=== PATIENT | female | born 1995 | race Caucasian/White ===

== ENCOUNTER 2020-06-14 10:42 | Emergency (ER) | payer OTHER ==
[2020-06-14] MEDS ORDERED: SODIUM CHLORIDE 0.9% 1,000 ML IV ONE (10:55)
--- NOTE | 2020-06-14 10:58 | ED ---
General Adult HPI - General Stated complaint: Seizure, Mental Health Time Seen by Provider: 06/14/20 10:42 Source: patient, RN notes reviewed, old records reviewed - History of Present Illness Initial comments: This is a 25-year-old female who presents emergency department after EMS had brought her in. 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 Patient herself does not remember any of the episode she does not remember EMS arriving she does not know where she currently is except that she know she is in the hospital. Patient states she did have a seizure about a month ago for the first time. Patient states she was up late last night drinking. Patient denies any drug use except marijuana. Patient states she has a very mild headache she denies any chest pain palpitations difficulty breathing or shortness of breath. Patient denies any recent fever chills per patient denies any abdominal pain patient denies nausea vomiting diarrhea. - Related Data Allergies Allergy/AdvReac Type Severity Reaction Status Date / Time No Known Allergies Allergy Verified 06/14/20 11:12 Review of Systems ROS Statement: Those systems with pertinent positive or pertinent negative responses have been documented in the HPI. ROS Other: All systems not noted in ROS Statement are negative. General Exam - General Exam Comments Initial Comments: GENERAL: Patient is well-developed and well-nourished. Patient is nontoxic and well- hydrated and is in mild distress. Patient is what secondary to being diaphoretic earlier. ENT: Neck is soft and supple. No significant lymphadenopathy is noted. Oropharynx is clear. Moist mucous membranes. Neck has full range of motion without eliciting any pain. EYES: The sclera were anicteric and conjunctiva were pink and moist. Extraocular movements were intact and pupils were equal round and reactive to light. Eyelids were unremarkable. PULMONARY: Unlabored respirations. Good breath sounds bilaterally. No audible rales rhonchi or wheezing was noted. CARDIOVASCULAR: There is a regular rate and rhythm without any murmurs gallops or rubs. ABDOMEN: Soft and nontender with normal bowel sounds. SKIN: Skin is clear with no lesions or rashes and otherwise unremarkable. NEUROLOGIC: Patient is alert and oriented 2. Cranial nerves II through XII are grossly intact. Motor and sensory are also intact. Normal speech, volume and content. Symmetrical smile. MUSCULOSKELETAL: Normal extremities with adequate strength and full range of motion. LYMPHATICS: No significant lymphadenopathy is noted PSYCHIATRIC: Unable to assess at this time Course Vital Signs 06/14/20 06/14/20 06/14/20 10:52 11:45 12:01 Temperature 97.1 F L 96.8 F L Pulse Rate 117 H 100 90 Respiratory 18 18 18 Rate Blood Pressure 110/69 113/77 O2 Sat by Pulse 97 98 100 Oximetry Medical Decision Making - Medical Decision Making EKG shows sinus rhythm at 86 bpm AK interval 236 QRS 88 QT interval 348 QTC is 416. Patient's EKG shows no ST segment elevation or depression. I will begin to reevaluate the patient she was much more alert and she stated that last time she had a seizure a month ago approximately she had a very violent postictal CT of the brain shows hydrocephalus. Patient had amphetamines on board which she admitted to using on occasion. I recommended that the patient stay because this is her second seizure in the last 4-5 weeks and it because of the abnormal hydrocephalus but the patient refused and signed out AMA understanding of the possible morbidity mortality - Lab Data Result diagrams: 06/14/20 11:15 06/14/20 11:15 Lab Results 06/14/20 06/14/20 06/14/20 Range/Units 11:15 11:15 11:15 WBC 9.2 (3.8-10.6) k/uL RBC 4.82 (3.80-5.40) m/uL Hgb 15.8 (11.4-16.0) gm/dL Hct 48.2 H (34.0-46.0) % MCV 100.0 (80.0-100.0) fL MCH 32.8 (25.0-35.0) pg MCHC 32.8 (31.0-37.0) g/dL RDW 12.2 (11.5-15.5) % Plt Count 246 (150-450) k/uL Neutrophils % 71 % Lymphocytes % 14 % Monocytes % 10 % Eosinophils % 2 % Basophils % 0 % Neutrophils # 6.6 (1.3-7.7) k/uL Lymphocytes # 1.3 (1.0-4.8) k/uL Monocytes # 0.9 (0-1.0) k/uL Eosinophils # 0.2 (0-0.7) k/uL Basophils # 0.0 (0-0.2) k/uL PT 10.5 (9.0-12.0) sec INR 1.0 (<1.2) APTT 20.6 L (22.0-30.0) sec Sodium (137-145) mmol/L Potassium (3.5-5.1) mmol/L Chloride (98-107) mmol/L Carbon Dioxide (22-30) mmol/L Anion Gap mmol/L BUN (7-17) mg/dL Creatinine (0.52-1.04) mg/dL Est GFR (CKD-EPI)AfAm (>60 ml/min/1.73 sqM) Est GFR (CKD-EPI)NonAf (>60 ml/min/1.73 sqM) Glucose (74-99) mg/dL Calcium (8.4-10.2) mg/dL Total Bilirubin (0.2-1.3) mg/dL AST (14-36) U/L ALT (4-34) U/L Alkaline Phosphatase (38-126) U/L Troponin I (0.000-0.034) ng/mL Total Protein (6.3-8.2) g/dL Albumin (3.5-5.0) g/dL Urine Color Yellow Urine Appearance Clear (Clear) Urine pH 5.5 (5.0-8.0) Ur Specific [place] 1.016 (1.001-1.035) Urine Protein 1+ H (Negative) Urine Glucose (UA) Negative (Negative) Urine Ketones 1+ H (Negative) Urine Blood Negative (Negative) Urine Nitrite Negative (Negative) Urine Bilirubin Negative (Negative) Urine Urobilinogen <2.0 (<2.0) mg/dL Ur Leukocyte Esterase Small H (Negative) Urine RBC 2 (0-5) /hpf Urine WBC 7 H (0-5) /hpf Ur Squamous Epith Cells 6 H (0-4) /hpf Hyaline Casts 12 H (0-2) /lpf Granular Casts 1 (0) /lpf Urine Mucus Rare H (None) /hpf Urine Opiates Screen Not Detected (NotDetected) Ur Oxycodone Screen Not Detected (NotDetected) Urine Methadone Screen Not Detected (NotDetected) Ur Propoxyphene Screen Not Detected (NotDetected) Ur Barbiturates Screen Not Detected (NotDetected) U Tricyclic Antidepress Not Detected (NotDetected) Ur Phencyclidine Scrn Not Detected (NotDetected) Ur Amphetamines Screen Detected H (NotDetected) U Methamphetamines Scrn Not Detected (NotDetected) U Benzodiazepines Scrn Not Detected (NotDetected) Urine Cocaine Screen Not Detected (NotDetected) U Marijuana (THC) Screen Detected H (NotDetected) Serum Alcohol mg/dL 06/14/20 06/14/20 Range/Units 11:15 11:15 WBC (3.8-10.6) k/uL RBC (3.80-5.40) m/uL Hgb (11.4-16.0) gm/dL Hct (34.0-46.0) % MCV (80.0-100.0) fL MCH (25.0-35.0) pg MCHC (31.0-37.0) g/dL RDW (11.5-15.5) % Plt Count (150-450) k/uL Neutrophils % % Lymphocytes % % Monocytes % % Eosinophils % % Basophils % % Neutrophils # (1.3-7.7) k/uL Lymphocytes # (1.0-4.8) k/uL Monocytes # (0-1.0) k/uL Eosinophils # (0-0.7) k/uL Basophils # (0-0.2) k/uL PT (9.0-12.0) sec INR (<1.2) APTT (22.0-30.0) sec Sodium 138 (137-145) mmol/L Potassium 4.0 (3.5-5.1) mmol/L Chloride 108 H (98-107) mmol/L Carbon Dioxide 20 L (22-30) mmol/L Anion Gap 10 mmol/L BUN 12 (7-17) mg/dL Creatinine 0.86 (0.52-1.04) mg/dL Est GFR (CKD-EPI)AfAm >90 (>60 ml/min/1.73 sqM) Est GFR (CKD-EPI)NonAf >90 (>60 ml/min/1.73 sqM) Glucose 86 (74-99) mg/dL Calcium 9.1 (8.4-10.2) mg/dL Total Bilirubin 0.5 (0.2-1.3) mg/dL AST 29 (14-36) U/L ALT 17 (4-34) U/L Alkaline Phosphatase 66 (38-126) U/L Troponin I <0.012 (0.000-0.034) ng/mL Total Protein 7.1 (6.3-8.2) g/dL Albumin 4.5 (3.5-5.0) g/dL Urine Color Urine Appearance (Clear) Urine pH (5.0-8.0) Ur Specific [place] (1.001-1.035) Urine Protein (Negative) Urine Glucose (UA) (Negative) Urine Ketones (Negative) Urine Blood (Negative) Urine Nitrite (Negative) Urine Bilirubin (Negative) Urine Urobilinogen (<2.0) mg/dL Ur Leukocyte Esterase (Negative) Urine RBC (0-5) /hpf Urine WBC (0-5) /hpf Ur Squamous Epith Cells (0-4) /hpf Hyaline Casts (0-2) /lpf Granular Casts (0) /lpf Urine Mucus (None) /hpf Urine Opiates Screen (NotDetected) Ur Oxycodone Screen (NotDetected) Urine Methadone Screen (NotDetected) Ur Propoxyphene Screen (NotDetected) Ur Barbiturates Screen (NotDetected) U Tricyclic Antidepress (NotDetected) Ur Phencyclidine Scrn (NotDetected) Ur Amphetamines Screen (NotDetected) U Methamphetamines Scrn (NotDetected) U Benzodiazepines Scrn (NotDetected) Urine Cocaine Screen (NotDetected) U Marijuana (THC) Screen (NotDetected) Serum Alcohol <10 mg/dL Disposition Clinical Impression: Generalized seizure, Hydrocephalus, Amphetamine abuse Disposition: Left Against Medical Advice Instructions (If sedation given, give patient instructions): New-Onset Seizure in Adults (ED) Is patient prescribed a controlled substance at d/c from ED?: No Referrals: Nonstaff,Physician [Primary Care Provider] - 1-2 days Time of Disposition: 12:53
[2020-06-14 11:00] VITALS: RESP 18
[2020-06-14 11:43] LABS: ALT 17 U/L (4-34); AST 29 U/L (14-36); African American GFR (CKD) >90 (>60 ml/min/1.73 sqM); Albumin 4.5 g/dL (3.5-5.0); Alcohol <10 mg/dL; Alkaline Phosphatase 66 U/L (38-126); Anion Gap 10 mmol/L; Blood Urea Nitrogen 12 mg/dL (7-17); Calcium 9.1 mg/dL (8.4-10.2); Carbon Dioxide 20 mmol/L (22-30); Chloride 108 mmol/L (98-107); Glucose 86 mg/dL (74-99); Non-African American GFR(CKD) >90 (>60 ml/min/1.73 sqM); Prothrombin Time 10.5 sec (9.0-12.0); Sodium 138 mmol/L (137-145); Total Bilirubin 0.5 mg/dL (0.2-1.3); Total Protein 7.1 g/dL (6.3-8.2)
[2020-06-14 11:45] LABS: Partial Thromboplastin Time 20.6 sec (22.0-30.0)
--- NOTE | 2020-06-14 11:46 | CT ---
EXAMINATION TYPE: CT brain wo con DATE OF EXAM: 06/14/2020 COMPARISON: None HISTORY: 25 year-old female altered mental status, confusion TECHNIQUE: Examination was done in axial plane without intravenous contrast. Coronal and sagittal r econstructions performed. CT DLP: 1054.4 mGycm Automated exposure control for dose reduction was used. FINDINGS: There is no evidence of acute intracranial hemorrhage, acute ischemic changes, mass, mass-effect, or extra-axial fluid collection. There is no effacement of cerebral sulci or basal subarachnoid cister ns. There is mild to moderate hydrocephalus with Lorne's ratio calculated at 0.38. There is no midline shift. Sheth-white matter distinction is preserved. Small amount of opacification within the inferior most right mastoid air cells. Paranasal sinuses are clear. Orbits and globes are intact. IMPRESSION: Mild/moderate hydrocephalus, abnormal for this patient, but of unknown chronicity. Correlate for any known underlying diagnosis. NPH is generally described in the older population. Consider sequela of p rior intracranial infection. Correlation can be made to exclude any active infection. No acute intrac ranial hemorrhage, midline shift, or obstructing lesion is seen.
[2020-06-14] MEDS ORDERED: ONDANSETRON 4 MG/2 ML VIAL IVP STA (11:47)
--- NOTE | 2020-06-14 11:56 | XR ---
EXAMINATION TYPE: XR chest 2V DATE OF EXAM: 06/14/2020 COMPARISON: None HISTORY: 25-year-old female seizure-like activity, altered mental status. TECHNIQUE: AP and lateral views FINDINGS: The cardiomediastinal silhouette, aorta, and pulmonary vasculature are within normal limits. Lungs an d pleural spaces are clear. IMPRESSION: No acute cardiopulmonary process.
[2020-06-14 12:00] LABS: Basophils % (A) 0 %; Eosinophils # (A) 0.2 k/uL (0-0.7); Eosinophils % (A) 2 %; HCT 48.2 % (34.0-46.0); HGB 15.8 gm/dL (11.4-16.0); Lymphocytes # (A) 1.3 k/uL (1.0-4.8); Lymphocytes % (A) 14 %; MCH 32.8 pg (25.0-35.0); MCHC 32.8 g/dL (31.0-37.0); Mean Platelet Volume 7.4; Monocytes # (A) 0.9 k/uL (0-1.0); Monocytes % (A) 10 %; Neutrophils # (A) 6.6 k/uL (1.3-7.7); Neutrophils % (A) 71 %; Platelet Count 246 k/uL (150-450); RBC 4.82 m/uL (3.80-5.40); RDW 12.2 % (11.5-15.5); WBC 9.2 k/uL (3.8-10.6)
[2020-06-14 12:02] VITALS: BP 113/77; PULSE 90; TEMP 96.8
[2020-06-14 12:23] LABS: Appearance,Urine Clear (Clear); Bilirubin,Urine Negative (Negative); Blood,Urine Negative (Negative); Color,Urine Yellow; Glucose,Urine (UA) Negative (Negative); Granular Casts,Urine 1 /lpf (0); Hyaline Casts,Urine 12 /lpf (0-2); Ketones,Urine 1+ (Negative); Leukocyte Esterase,Urine Small (Negative); Mucus,Urine Rare /hpf; Nitrite,Urine Negative (Negative); PH, Urine 5.5 (5.0-8.0); Protein,Urine 1+ (Negative); RBC,Urine 2 /hpf (0-5); Specific Gravity,Urine 1.016 (1.001-1.035); Squamous Epithelial Cell,Urine 6 /hpf (0-4); Urobilinogen,Urine <2.0 mg/dL (<2.0); WBC,Urine 7 /hpf (0-5)
[2020-06-14 12:24] LABS: Amphetamine Screen,Urine Detected (NotDetected); Barbiturate Screen,Urine Not Detected (NotDetected); Benzodiazepines Screen,Urine Not Detected (NotDetected); Cocaine Screen,Urine Not Detected (NotDetected); Methadone Screen, Urine Not Detected (NotDetected); Opiate Screen,Urine Not Detected (NotDetected); Oxycodone Screen, Urine Not Detected (NotDetected); Phencyclidine Screen,Urine Not Detected (NotDetected); Tricyclic Antidepressant,Urine Not Detected (NotDetected); Urn Cannabinoid Scrn Detected (NotDetected)
== END 2020-06-14 13:09 | disposition left against medical advice (07) ==
LOC: EC 10:42
DX: G40.909 Epilepsy, unspecified, not intractable, without status epilepticus (principal); F17.200 Nicotine dependence, unspecified, uncomplicated; G91.9 Hydrocephalus, unspecified; F15.10 Other stimulant abuse, uncomplicated
CPT/HCPCS: 36415; 93005; 80053; 84484; 85025; 85610; 85730; 81001; 80306; 80320; 71046; 70450; 99285; 96374; 96361; J2405

== ENCOUNTER 2020-07-03 14:21 | Emergency (ER) | payer OTHER ==
[2020-07-03] MEDS ORDERED: SODIUM CHLORIDE 0.9% 1,000 ML IV STA (14:48)
[2020-07-03] MEDS ORDERED: LORazepam 2 MG/ML INJ IV STA (14:48)
--- NOTE | 2020-07-03 14:48 | ED ---
General Adult HPI - General Chief complaint: Recheck/Abnormal Lab/Rx Stated complaint: seizures Time Seen by Provider: 07/03/20 14:36 Source: patient, EMS, RN notes reviewed, old records reviewed Mode of arrival: EMS Limitations: no limitations - History of Present Illness Initial comments: Patient is a pleasant 25-year-old female presenting to the emergency Department with concern she may develop a seizure. Onset of symptoms was a couple of hours ago. Patient has pressure in her head diffusely. Pressure has been waxing and waning between mild to moderate and is mild at this time. No sudden onset severe headache. Patient does feel a little bit lightheaded. Patient feels jittery as well. Patient omits to taking Adderall 10 mg as well as smoking marijuana. Patient states that lateral was not prescribed for her. Patient states she has had both of these previously without the same affect. Patient denies any confusion or weakness. Patient does have history of seizures starting just a couple of months ago. No seizure today. Patient did not have similar symptoms previously with seizure. Patient does have an appointment set up to see neurology. - Related Data Home Medications Medication Instructions Recorded Confirmed No Known Home Medications 06/14/20 07/03/20 Allergies Allergy/AdvReac Type Severity Reaction Status Date / Time No Known Allergies Allergy Verified 07/03/20 16:00 Review of Systems ROS Statement: Those systems with pertinent positive or pertinent negative responses have been documented in the HPI. ROS Other: All systems not noted in ROS Statement are negative. Constitutional: Denies: fever Eyes: Denies: eye pain ENT: Denies: ear pain Respiratory: Denies: cough Cardiovascular: Denies: chest pain Endocrine: Denies: fatigue Gastrointestinal: Denies: abdominal pain Genitourinary: Denies: urgency Musculoskeletal: Denies: back pain Skin: Denies: rash Neurological: Reports: as per HPI. Denies: weakness, confusion Past Medical History Past Medical History: Seizure Disorder History of Any Multi-Drug Resistant Organisms: None Reported Past Surgical History: No Surgical Hx Reported Past Psychological History: No Psychological Hx Reported Smoking Status: Current every day smoker Past Alcohol Use History: Occasional Past Drug Use History: Marijuana General Exam Limitations: no limitations General appearance: alert, in no apparent distress Head exam: Present: normocephalic Eye exam: Present: normal appearance, PERRL, EOMI ENT exam: Present: normal oropharynx Neck exam: Present: normal inspection. Absent: tenderness, meningismus Respiratory exam: Present: normal lung sounds bilaterally Cardiovascular Exam: Present: regular rate, normal rhythm GI/Abdominal exam: Present: soft. Absent: tenderness Extremities exam: Present: normal inspection Neurological exam: Present: alert, oriented X3, CN II-XII intact. Absent: motor sensory deficit Expanded Neurological exam: Present: protecting the airway Speech: Present: fluid speech Cranial nerves: EOM's Intact: Normal, Facial Sensation: Normal Sensory exam: Upper Extremity Light Touch: Normal, Lower Extremity Light Touch: Normal Motor strength exam: RUE: 5, LUE: 5, RLE: 5, LLE: 5 Eye Response: (4) open spontaneously Motor Response: (6) obeys commands Verbal Response: (5) oriented Psychiatric exam: Present: normal affect, normal mood Skin exam: Present: normal color Course Vital Signs 07/03/20 14:28 Temperature 97.9 F Pulse Rate 82 Respiratory 17 Rate Blood Pressure 126/85 O2 Sat by Pulse 100 Oximetry - Reevaluation(s) Reevaluation #1: 07/03/20 14:46 Patient advised risks of taking Adderall and marijuana and possible relationship to her symptoms. Patient is also advised that she should not be taking medications that are not prescribed to her. EKG Findings - EKG Comments: EKG Findings:: Normal sinus rhythm 72. VA 124. QRS 76. QT 382. QTC 418. Normal axis. Normal QRS. No acute ST change. Medical Decision Making - Medical Decision Making Patient reevaluated and is feeling much better. Patient along her feels shaky. Patient states she feels normal at this time. Patient is comfortable with discharge. Patient states she does have a regular doctor she can follow-up with. Patient states she also does have an appointment coming up with a neurologist. - Lab Data Result diagrams: 07/03/20 15:03 07/03/20 15:03 Lab Results 07/03/20 07/03/20 07/03/20 Range/Units 15:03 15: 15:03 WBC 6.8 (3.8-10.6) k/uL RBC 4.72 (3.80-5.40) m/uL Hgb 16.1 H (11.4-16.0) gm/dL Hct 47.4 H (34.0-46.0) % MCV 100.4 H (80.0-100.0) fL MCH 34.0 (25.0-35.0) pg MCHC 33.9 (31.0-37.0) g/dL RDW 12.1 (11.5-15.5) % Plt Count 246 (150-450) k/uL Neutrophils % 65 % Lymphocytes % 18 % Monocytes % 11 % Eosinophils % 1 % Basophils % 1 % Neutrophils # 4.4 (1.3-7.7) k/uL Lymphocytes # 1.2 (1.0-4.8) k/uL Monocytes # 0.7 (0-1.0) k/uL Eosinophils # 0.1 (0-0.7) k/uL Basophils # 0.0 (0-0.2) k/uL Sodium 135 L (137-145) mmol/L Potassium 4.2 (3.5-5.1) mmol/L Chloride 107 (98-107) mmol/L Carbon Dioxide 24 (22-30) mmol/L Anion Gap 4 mmol/L BUN 12 (7-17) mg/dL Creatinine 0.81 (0.52-1.04) mg/dL Est GFR (CKD-EPI)AfAm >90 (>60 ml/min/1.73 sqM) Est GFR (CKD-EPI)NonAf >90 (>60 ml/min/1.73 sqM) Glucose 102 H (74-99) mg/dL Calcium 9.2 (8.4-10.2) mg/dL Magnesium 1.8 (1.6-2.3) mg/dL Total Bilirubin 0.5 (0.2-1.3) mg/dL AST 34 (14-36) U/L ALT 24 (4-34) U/L Alkaline Phosphatase 60 (38-126) U/L Total Protein 6.9 (6.3-8.2) g/dL Albumin 4.2 (3.5-5.0) g/dL Urine Color Yellow Urine Appearance Clear (Clear) Urine pH 6.5 (5.0-8.0) Ur Specific [place] 1.008 (1.001-1.035) Urine Protein Negative (Negative) Urine Glucose (UA) Negative (Negative) Urine Ketones Negative (Negative) Urine Blood Negative (Negative) Urine Nitrite Negative (Negative) Urine Bilirubin Negative (Negative) Urine Urobilinogen <2.0 (<2.0) mg/dL Ur Leukocyte Esterase Trace H (Negative) Urine RBC 1 (0-5) /hpf Urine WBC 1 (0-5) /hpf Ur Squamous Epith Cells 1 (0-4) /hpf Urine Mucus Occasional H (None) /hpf Urine Opiates Screen Not Detected (NotDetected) Ur Oxycodone Screen Not Detected (NotDetected) Urine Methadone Screen Not Detected (NotDetected) Ur Propoxyphene Screen Not Detected (NotDetected) Ur Barbiturates Screen Not Detected (NotDetected) U Tricyclic Antidepress Not Detected (NotDetected) Ur Phencyclidine Scrn Not Detected (NotDetected) Ur Amphetamines Screen Detected H (NotDetected) U Methamphetamines Scrn Not Detected (NotDetected) U Benzodiazepines Scrn Not Detected (NotDetected) Urine Cocaine Screen Not Detected (NotDetected) U Marijuana (THC) Screen Detected H (NotDetected) Serum Alcohol <10 mg/dL Disposition Clinical Impression: Tremor Disposition: HOME SELF-CARE Condition: Stable Instructions (If sedation given, give patient instructions): Tremors (ED), General Headache (ED), Recurrent Seizures in Adults (ED) Additional Instructions: Discontinue Adderall and marijuana use. Please follow-up with primary care physician in the next day or 2 for recheck. Please also follow-up with neurolo gist as planned. Return for seizures, headaches, fevers, weakness, change or worsening symptoms or any other concerns. Is patient prescribed a controlled substance at d/c from ED?: No Referrals: Dawna Charles MD [STAFF PHYSICIAN] - 1-2 days Time of Disposition: 16:06
[2020-07-03 15:20] LABS: Appearance,Urine Clear (Clear); Bilirubin,Urine Negative (Negative); Blood,Urine Negative (Negative); Color,Urine Yellow; Glucose,Urine (UA) Negative (Negative); Ketones,Urine Negative (Negative); Leukocyte Esterase,Urine Trace (Negative); Mucus,Urine Occasional /hpf; Nitrite,Urine Negative (Negative); PH, Urine 6.5 (5.0-8.0); Protein,Urine Negative (Negative); RBC,Urine 1 /hpf (0-5); Specific Gravity,Urine 1.008 (1.001-1.035); Squamous Epithelial Cell,Urine 1 /hpf (0-4); Urobilinogen,Urine <2.0 mg/dL (<2.0); WBC,Urine 1 /hpf (0-5)
[2020-07-03 15:32] LABS: ALT 24 U/L (4-34); AST 34 U/L (14-36); African American GFR (CKD) >90 (>60 ml/min/1.73 sqM); Albumin 4.2 g/dL (3.5-5.0); Alcohol <10 mg/dL; Alkaline Phosphatase 60 U/L (38-126); Anion Gap 4 mmol/L; Blood Urea Nitrogen 12 mg/dL (7-17); Calcium 9.2 mg/dL (8.4-10.2); Carbon Dioxide 24 mmol/L (22-30); Chloride 107 mmol/L (98-107); Glucose 102 mg/dL (74-99); Magnesium 1.8 mg/dL (1.6-2.3); Non-African American GFR(CKD) >90 (>60 ml/min/1.73 sqM); Potassium 4.2 mmol/L (3.5-5.1); Sodium 135 mmol/L (137-145); Total Bilirubin 0.5 mg/dL (0.2-1.3); Total Protein 6.9 g/dL (6.3-8.2)
[2020-07-03 15:34] LABS: Amphetamine Screen,Urine Detected (NotDetected); Barbiturate Screen,Urine Not Detected (NotDetected); Benzodiazepines Screen,Urine Not Detected (NotDetected); Cocaine Screen,Urine Not Detected (NotDetected); Methadone Screen, Urine Not Detected (NotDetected); Opiate Screen,Urine Not Detected (NotDetected); Oxycodone Screen, Urine Not Detected (NotDetected); Phencyclidine Screen,Urine Not Detected (NotDetected); Tricyclic Antidepressant,Urine Not Detected (NotDetected); Urn Cannabinoid Scrn Detected (NotDetected)
[2020-07-03 15:48] LABS: Basophils % (A) 1 %; Eosinophils # (A) 0.1 k/uL (0-0.7); Eosinophils % (A) 1 %; HCT 47.4 % (34.0-46.0); HGB 16.1 gm/dL (11.4-16.0); Lymphocytes # (A) 1.2 k/uL (1.0-4.8); Lymphocytes % (A) 18 %; MCHC 33.9 g/dL (31.0-37.0); MCV 100.4 fL (80.0-100.0); Mean Platelet Volume 7.4; Monocytes # (A) 0.7 k/uL (0-1.0); Monocytes % (A) 11 %; Neutrophils # (A) 4.4 k/uL (1.3-7.7); Neutrophils % (A) 65 %; Platelet Count 246 k/uL (150-450); RBC 4.72 m/uL (3.80-5.40); RDW 12.1 % (11.5-15.5); WBC 6.8 k/uL (3.8-10.6)
[2020-07-03 16:16] VITALS: BP 121/81; PULSE 72; RESP 16; TEMP 98.2
== END 2020-07-03 16:16 | disposition home or self-care (01) ==
LOC: EC 14:21
DX: G40.909 Epilepsy, unspecified, not intractable, without status epilepticus (principal); R51.9 Headache, unspecified; F17.200 Nicotine dependence, unspecified, uncomplicated
CPT/HCPCS: 36415; 93005; 80053; 83735; 85025; 80306; 81001; 99284; 96374; 96361; G0480; J2060; 80320

== ENCOUNTER 2020-07-16 14:14 | Emergency (ER) | payer OTHER ==
[2020-07-16] MEDS ORDERED: SODIUM CHLORIDE 0.9% 1,000 ML IV STA (14:47)
[2020-07-16] MEDS ORDERED: LORazepam 2 MG/ML INJ IV STA (14:48)
[2020-07-16 15:30] LABS: Glucose,Whole Blood 107 mg/dL (75-99)
[2020-07-16 15:36] LABS: Appearance,Urine Clear (Clear); Basophils % (A) 0 %; Bilirubin,Urine Negative (Negative); Blood,Urine Negative (Negative); Color,Urine Yellow; Eosinophils # (A) 0.1 k/uL (0-0.7); Eosinophils % (A) 1 %; Glucose,Urine (UA) Negative (Negative); HGB 15.1 gm/dL (11.4-16.0); Ketones,Urine 1+ (Negative); Leukocyte Esterase,Urine Negative (Negative); Lymphocytes # (A) 1.2 k/uL (1.0-4.8); Lymphocytes % (A) 9 %; MCH 33.2 pg (25.0-35.0); MCHC 33.5 g/dL (31.0-37.0); MCV 99.2 fL (80.0-100.0); Mean Platelet Volume 7.5; Monocytes # (A) 1.3 k/uL (0-1.0); Monocytes % (A) 10 %; Neutrophils # (A) 9.8 k/uL (1.3-7.7); Neutrophils % (A) 77 %; Nitrite,Urine Negative (Negative); Platelet Count 261 k/uL (150-450); Protein,Urine Trace (Negative); RBC 4.53 m/uL (3.80-5.40); RDW 12.6 % (11.5-15.5); Specific Gravity,Urine 1.019 (1.001-1.035); Urobilinogen,Urine <2.0 mg/dL (<2.0); WBC 12.8 k/uL (3.8-10.6)
[2020-07-16 15:47] LABS: ALT 26 U/L (4-34); AST 45 U/L (14-36); African American GFR (CKD) >90 (>60 ml/min/1.73 sqM); Albumin 4.1 g/dL (3.5-5.0); Alcohol <10 mg/dL; Alkaline Phosphatase 48 U/L (38-126); Anion Gap 3 mmol/L; Blood Urea Nitrogen 15 mg/dL (7-17); Calcium 9.1 mg/dL (8.4-10.2); Carbon Dioxide 25 mmol/L (22-30); Chloride 106 mmol/L (98-107); Glucose 103 mg/dL (74-99); Non-African American GFR(CKD) >90 (>60 ml/min/1.73 sqM); Sodium 134 mmol/L (137-145); Total Bilirubin 0.9 mg/dL (0.2-1.3); Total Protein 6.9 g/dL (6.3-8.2)
[2020-07-16 15:51] LABS: Potassium 4.9 mmol/L (3.5-5.1)
[2020-07-16 16:02] LABS: Amphetamine Screen,Urine Not Detected (NotDetected); Barbiturate Screen,Urine Not Detected (NotDetected); Benzodiazepines Screen,Urine Detected (NotDetected); Cocaine Screen,Urine Not Detected (NotDetected); Methadone Screen, Urine Not Detected (NotDetected); Opiate Screen,Urine Not Detected (NotDetected); Oxycodone Screen, Urine Not Detected (NotDetected); Phencyclidine Screen,Urine Not Detected (NotDetected); Tricyclic Antidepressant,Urine Not Detected (NotDetected); Urn Cannabinoid Scrn Detected (NotDetected)
--- NOTE | 2020-07-16 16:17 | ED ---
General Adult HPI - General Chief complaint: Seizure Stated complaint: Seizure Time Seen by Provider: 07/16/20 14:35 Source: patient, EMS, RN notes reviewed Mode of arrival: EMS Limitations: no limitations - History of Present Illness Initial comments: 25-year-old female presents to the emergency room for a chief complaint of seizures. Patient states these started about one month ago. She reports is his first third seizure in that time. Patient states her last seizure was July 03. Patient states she was on her way home from her neurologist. Her boyfriend was driving when she started to have a seizure lasting 1-2 minutes. She did not bite her tongue. She did not lose bladder or bowel control. Patient is scheduled for an MRI on Thursday. Patient was not started on any medications by her neurologist Dr. Castro. Patient has no other complaints at this time including shortness of breath, chest pain, abdominal pain, nausea or vomiting, headache, or visual changes. - Related Data Home Medications Medication Instructions Recorded Confirmed No Known Home Medications 06/14/20 07/16/20 Allergies Allergy/AdvReac Type Severity Reaction Status Date / Time No Known Allergies Allergy Verified 07/16/20 15:04 Review of Systems ROS Statement: Those systems with pertinent positive or pertinent negative responses have been documented in the HPI. ROS Other: All systems not noted in ROS Statement are negative. Past Medical History Past Medical History: Seizure Disorder History of Any Multi-Drug Resistant Organisms: None Reported Past Surgical History: No Surgical Hx Reported Past Psychological History: No Psychological Hx Reported Smoking Status: Current every day smoker Past Alcohol Use History: Occasional Past Drug Use History: Marijuana General Exam Limitations: no limitations Course Vital Signs 07/16/20 14:17 Temperature 98 F Pulse Rate 102 H Respiratory 19 Rate Blood Pressure 126/71 O2 Sat by Pulse 98 Oximetry Medical Decision Making - Medical Decision Making Patient did have a CT performed mid-May which showed mild to moderate hydrocephalus unknown chronicity. Correlate to any known underlying diagnosis. No acute intracranial hemorrhage, midline shift, or obstructing lesion is seen. Patient well appearing on exam. No focal neurologic deficits. CBC CMP unremarkable. Urinalysis shows 1+ ketones, otherwise unremarkable. Marijuana screen was positive. Benzodiazepines likely related to Ativan. Recommendation stop smoking marijuana. Case was discussed with Dr. Talamantes, recommended starting patient on Keppra. She was given a dose here in the emergency department. She did see her neurologist earlier today. She will follow back up with her neurologist and get her MRI on Thursday. She will be seeing Dr Castro on thursday as well. She will call to discuss she had another seizure tomorrow morning. She will return here for any worsening symptoms. - Lab Data Result diagrams: 07/16/20 15:27 07/16/20 15:27 Lab Results 07/16/20 07/16/20 07/16/20 Range/Units 15:27 15: 15:27 WBC 12.8 H (3.8-10.6) k/uL RBC 4.53 (3.80-5.40) m/uL Hgb 15.1 (11.4-16.0) gm/dL Hct 45.0 (34.0-46.0) % MCV 99.2 (80.0-100.0) fL MCH 33.2 (25.0-35.0) pg MCHC 33.5 (31.0-37.0) g/dL RDW 12.6 (11.5-15.5) % Plt Count 261 (150-450) k/uL MPV 7.5 Neutrophils % 77 % Lymphocytes % 9 % Monocytes % 10 % Eosinophils % 1 % Basophils % 0 % Neutrophils # 9.8 H (1.3-7.7) k/uL Lymphocytes # 1.2 (1.0-4.8) k/uL Monocytes # 1.3 H (0-1.0) k/uL Eosinophils # 0.1 (0-0.7) k/uL Basophils # 0.0 (0-0.2) k/uL Sodium (137-145) mmol/L Potassium (3.5-5.1) mmol/L Chloride (98-107) mmol/L Carbon Dioxide (22-30) mmol/L Anion Gap mmol/L BUN (7-17) mg/dL Creatinine (0.52-1.04) mg/dL Est GFR (CKD-EPI)AfAm (>60 ml/min/1.73 sqM) Est GFR (CKD-EPI)NonAf (>60 ml/min/1.73 sqM) Glucose (74-99) mg/dL POC Glucose (mg/dL) (75-99) mg/dL POC [employer] Specialist ID Calcium (8.4-10.2) mg/dL Total Bilirubin (0.2-1.3) mg/dL AST (14-36) U/L ALT (4-34) U/L Alkaline Phosphatase (38-126) U/L Total Protein (6.3-8.2) g/dL Albumin (3.5-5.0) g/dL Urine Color Yellow Urine Appearance Clear (Clear) Urine pH 6.0 (5.0-8.0) Ur Specific Dixon 1.019 (1.001-1.035) Urine Protein Trace H (Negative) Urine Glucose (UA) Negative (Negative) Urine Ketones 1+ H (Negative) Urine Blood Negative (Negative) Urine Nitrite Negative (Negative) Urine Bilirubin Negative (Negative) Urine Urobilinogen <2.0 (<2.0) mg/dL Ur Leukocyte Esterase Negative (Negative) Urine HCG, Qual Not Detected (Not Detectd) Urine Opiates Screen Not Detected (NotDetected) Ur Oxycodone Screen Not Detected (NotDetected) Urine Methadone Screen Not Detected (NotDetected) Ur Propoxyphene Screen Not Detected (NotDetected) Ur Barbiturates Screen Not Detected (NotDetected) U Tricyclic Antidepress Not Detected (NotDetected) Ur Phencyclidine Scrn Not Detected (NotDetected) Ur Amphetamines Screen Not Detected (NotDetected) U Methamphetamines Scrn Not Detected (NotDetected) U Benzodiazepines Scrn Detected H (NotDetected) Urine Cocaine Screen Not Detected (NotDetected) U Marijuana (THC) Screen Detected H (NotDetected) Serum Alcohol mg/dL 07/16/20 07/16/20 Range/Units 15:27 15:29 WBC (3.8-10.6) k/uL RBC (3.80-5.40) m/uL Hgb (11.4-16.0) gm/dL Hct (34.0-46.0) % MCV (80.0-100.0) fL MCH (25.0-35.0) pg MCHC (31.0-37.0) g/dL RDW (11.5-15.5) % Plt Count (150-450) k/uL MPV Neutrophils % % Lymphocytes % % Monocytes % % Eosinophils % % Basophils % % Neutrophils # (1.3-7.7) k/uL Lymphocytes # (1.0-4.8) k/uL Monocytes # (0-1.0) k/uL Eosinophils # (0-0.7) k/uL Basophils # (0-0.2) k/uL Sodium 134 L (137-145) mmol/L Potassium 4.9 (3.5-5.1) mmol/L Chloride 106 (98-107) mmol/L Carbon Dioxide 25 (22-30) mmol/L Anion Gap 3 mmol/L BUN 15 (7-17) mg/dL Creatinine 0.69 (0.52-1.04) mg/dL Est GFR (CKD-EPI)AfAm >90 (>60 ml/min/1.73 sqM) Est GFR (CKD-EPI)NonAf >90 (>60 ml/min/1.73 sqM) Glucose 103 H (74-99) mg/dL POC Glucose (mg/dL) 107 H (75-99) mg/dL POC Glu [employer] Specialist ID Cheryle Lopez Calcium 9.1 (8.4-10.2) mg/dL Total Bilirubin 0.9 (0.2-1.3) mg/dL AST 45 H (14-36) U/L ALT 26 (4-34) U/L Alkaline Phosphatase 48 (38-126) U/L Total Protein 6.9 (6.3-8.2) g/dL Albumin 4.1 (3.5-5.0) g/dL Urine Color Urine Appearance (Clear) Urine pH (5.0-8.0) Ur Specific Dixon (1.001-1.035) Urine Protein (Negative) Urine Glucose (UA) (Negative) Urine Ketones (Negative) Urine Blood (Negative) Urine Nitrite (Negative) Urine Bilirubin (Negative) Urine Urobilinogen (<2.0) mg/dL Ur Leukocyte Esterase (Negative) Urine HCG, Qual (Not Detectd) Urine Opiates Screen (NotDetected) Ur Oxycodone Screen (NotDetected) Urine Methadone Screen (NotDetected) Ur Propoxyphene Screen (NotDetected) Ur Barbiturates Screen (NotDetected) U Tricyclic Antidepress (NotDetected) Ur Phencyclidine Scrn (NotDetected) Ur Amphetamines Screen (NotDetected) U Methamphetamines Scrn (NotDetected) U Benzodiazepines Scrn (NotDetected) Urine Cocaine Screen (NotDetected) U Marijuana (THC) Screen (NotDetected) Serum Alcohol <10 mg/dL Disposition Clinical Impression: Seizure disorder Disposition: HOME SELF-CARE Condition: Good Instructions (If sedation given, give patient instructions): Recurrent Seizures in Adults (ED) Additional Instructions: Please take Keppra as directed. Take your next dose tomorrow morning. Follow- up with your neurologist. Return to the emergency room for any worsening symptoms. Is patient prescribed a controlled substance at d/c from ED?: No Referrals: Nikhil Thomas MD [Primary Care Provider] - 1-2 days Fabiola Castro MD [Medical Doctor] - 1-2 days Time of Disposition: 16:31
[2020-07-16] MEDS ORDERED: levETIRAcetam 500 MG TAB PO STA (16:29)
[2020-07-16 17:31] VITALS: BP 112/74; PULSE 88; RESP 18; TEMP 97.8
== END 2020-07-16 17:05 | disposition home or self-care (01) ==
LOC: EC 14:14
DX: G40.909 Epilepsy, unspecified, not intractable, without status epilepticus (principal); G91.9 Hydrocephalus, unspecified; F17.200 Nicotine dependence, unspecified, uncomplicated
CPT/HCPCS: 36415; 93005; 80053; 85025; 81003; 81025; 80306; 99284; 96374; 96361; G0480; J2060; 80320

== ENCOUNTER 2020-08-14 21:57 | Emergency (ER) | payer OTHER ==
--- NOTE | 2020-08-14 22:18 | ED ---
Seizure HPI - General Chief Complaint: Seizure Stated Complaint: Seizure Time Seen by Provider: 08/14/20 22:07 Source: patient Mode of arrival: EMS Limitations: no limitations - History of Present Illness MD Complaint: seizure -: minutes(s) Description of Episode: loss of consciousness Trauma: No Seizure History: known seizure disorder Associated Symptoms: denies other symptoms Treatments Prior to Arrival: none - Related Data Previous Rx's Medication Instructions Recorded levETIRAcetam [Keppra] 500 mg PO Q12HR #28 tab 07/16/20 Allergies Allergy/AdvReac Type Severity Reaction Status Date / Time No Known Allergies Allergy Verified 08/14/20 22:13 Review of Systems ROS Statement: Those systems with pertinent positive or pertinent negative responses have been documented in the HPI. ROS Other: All systems not noted in ROS Statement are negative. Constitutional: Denies: fever, chills Respiratory: Denies: cough, dyspnea Cardiovascular: Denies: chest pain, palpitations Gastrointestinal: Denies: abdominal pain, nausea, vomiting, diarrhea Genitourinary: Denies: dysuria, hematuria Musculoskeletal: Denies: back pain Skin: Denies: rash Neurological: Denies: headache, weakness, numbness Past Medical History Past Medical History: Seizure Disorder History of Any Multi-Drug Resistant Organisms: None Reported Past Surgical History: No Surgical Hx Reported Past Psychological History: No Psychological Hx Reported Smoking Status: Current every day smoker Past Alcohol Use History: Occasional Past Drug Use History: Marijuana General Exam Limitations: no limitations General appearance: alert, in no apparent distress Head exam: Present: atraumatic, normocephalic Eye exam: Present: normal appearance. Absent: scleral icterus, conjunctival injection ENT exam: Present: normal oropharynx Neck exam: Present: normal inspection, full ROM. Absent: tenderness Respiratory exam: Present: normal lung sounds bilaterally. Absent: respiratory distress, wheezes, rales, rhonchi, stridor Cardiovascular Exam: Present: regular rate, normal rhythm, normal heart sounds. Absent: systolic murmur, diastolic murmur, rubs, gallop GI/Abdominal exam: Present: soft. Absent: distended, tenderness, guarding, rebound, rigid, mass Extremities exam: Present: normal inspection, normal capillary refill. Absent: pedal edema, calf tenderness Back exam: Present: normal inspection. Absent: CVA tenderness (R), CVA tenderness (L) Neurological exam: Present: alert, oriented X3, CN II-XII intact. Absent: motor sensory deficit Skin exam: Present: warm, dry, intact, normal color. Absent: rash Course Vital Signs 08/14/20 08/14/20 22:06 23:13 Temperature 97.4 F L Pulse Rate 98 91 Respiratory 18 20 Rate Blood Pressure 100/71 106/61 O2 Sat by Pulse 100 99 Oximetry Medical Decision Making - Lab Data Result diagrams: 08/14/20 22:24 08/14/20 22:24 Lab Results 08/14/20 08/14/20 Range/Units 22:24 22:24 WBC 6.2 (3.8-10.6) k/uL RBC 4.26 (3.80-5.40) m/uL Hgb 14.6 (11.4-16.0) gm/dL Hct 41.1 (34.0-46.0) % MCV 96.4 (80.0-100.0) fL MCH 34.2 (25.0-35.0) pg MCHC 35.4 (31.0-37.0) g/dL RDW 11.5 (11.5-15.5) % Plt Count 212 (150-450) k/uL MPV 7.2 Sodium 138 (137-145) mmol/L Potassium 3.6 (3.5-5.1) mmol/L Chloride 107 (98-107) mmol/L Carbon Dioxide 24 (22-30) mmol/L Anion Gap 7 mmol/L BUN 11 (7-17) mg/dL Creatinine 0.89 (0.52-1.04) mg/dL Est GFR (CKD-EPI)AfAm >90 (>60 ml/min/1.73 sqM) Est GFR (CKD-EPI)NonAf >90 (>60 ml/min/1.73 sqM) Glucose 77 (74-99) mg/dL Calcium 9.7 (8.4-10.2) mg/dL Total Bilirubin 0.2 (0.2-1.3) mg/dL AST 29 (14-36) U/L ALT 22 (4-34) U/L Alkaline Phosphatase 66 (38-126) U/L Total Protein 6.4 (6.3-8.2) g/dL Albumin 4.1 (3.5-5.0) g/dL Serum Alcohol 127 mg/dL Disposition Clinical Impression: Seizure disorder, Alcohol intoxication Disposition: HOME SELF-CARE Condition: Good Instructions (If sedation given, give patient instructions): Recurrent Seizures in Adults (ED) Is patient prescribed a controlled substance at d/c from ED?: No Referrals: Nikhil Thomas MD [Primary Care Provider] - 1-2 days Fabiola Castro MD [Medical Doctor] - 1-2 days
[2020-08-14 22:36] LABS: HCT 41.1 % (34.0-46.0); HGB 14.6 gm/dL (11.4-16.0); MCH 34.2 pg (25.0-35.0); MCHC 35.4 g/dL (31.0-37.0); MCV 96.4 fL (80.0-100.0); Mean Platelet Volume 7.2; Platelet Count 212 k/uL (150-450); RBC 4.26 m/uL (3.80-5.40); RDW 11.5 % (11.5-15.5); WBC 6.2 k/uL (3.8-10.6)
[2020-08-14 22:50] LABS: ALT 22 U/L (4-34); AST 29 U/L (14-36); African American GFR (CKD) >90 (>60 ml/min/1.73 sqM); Albumin 4.1 g/dL (3.5-5.0); Alkaline Phosphatase 66 U/L (38-126); Anion Gap 7 mmol/L; Blood Urea Nitrogen 11 mg/dL (7-17); Calcium 9.7 mg/dL (8.4-10.2); Carbon Dioxide 24 mmol/L (22-30); Chloride 107 mmol/L (98-107); Glucose 77 mg/dL (74-99); Non-African American GFR(CKD) >90 (>60 ml/min/1.73 sqM); Potassium 3.6 mmol/L (3.5-5.1); Sodium 138 mmol/L (137-145); Total Bilirubin 0.2 mg/dL (0.2-1.3); Total Protein 6.4 g/dL (6.3-8.2)
[2020-08-14 23:04] LABS: Alcohol 127 mg/dL
[2020-08-15 00:20] LABS: Eosinophils # (M) 0.25 k/uL (0-0.7); Lymphocytes # (M) 2.11 k/uL (1.0-4.8); Monocytes # (M) 0.74 k/uL (0-1.0); Neutrophils % (M) 50 %; Nucleated Red Blood Cells 0 /100 WBC (0-0); Total Cells Counted 100
[2020-08-15 00:30] VITALS: BP 138/79; PULSE 99; RESP 16; TEMP 98.4
== END 2020-08-15 00:30 | disposition home or self-care (01) ==
LOC: EC 21:57
DX: G40.909 Epilepsy, unspecified, not intractable, without status epilepticus (principal); F17.200 Nicotine dependence, unspecified, uncomplicated; F10.129 Alcohol abuse with intoxication, unspecified; Y90.6 Blood alcohol level of 120-199 mg/100 ml
CPT/HCPCS: 36415; 80053; 80177; 85025; 99284; G0480; 80320

== ENCOUNTER 2022-01-21 06:28 | Day surgery (SDC) | payer OTHER ==
[2022-01-20 12:03] VITALS: BMI 34.5
[~2022-01-21 06:28] MED LIST: DEXAMETHASONE SOD PHOSPHATE 4 MG/ML 1 ML VIAL IV ONE; LACTATED RINGERS 1,000 ML IV SCH; LIDOCAINE 1% (10MG/ML) FOR IV START INTRADERMA PRN; MIDAZOLAM 2 MG/2 ML VIAL IV PRN; ONDANSETRON 4 MG/2 ML VIAL IVP ONE; Pre Op ABX Message 1 EACH MISC MISCELLANE ONE
--- NOTE | 2022-01-21 06:43 | P.HPOB ---
History of Present Illness H&P Date: 01/21/22 Chief Complaint: HGSIL 26 year old presents for LEEP due to HGSIL and CHRISTOPHER II. Review of Systems All systems: negative Constitutional: Denies chills, Denies fever Eyes: denies blurred vision, denies pain Ears, nose, mouth and throat: Denies headache, Denies sore throat Cardiovascular: Denies chest pain, Denies shortness of breath Respiratory: Denies cough Gastrointestinal: Denies abdominal pain, Denies diarrhea, Denies nausea, Denies vomiting Genitourinary: Denies dysuria, Denies hematuria Musculoskeletal: Denies myalgias Integumentary: Denies pruritus, Denies rash Neurological: Denies numbness, Denies weakness Psychiatric: Denies anxiety, Denies depression Endocrine: Denies fatigue, Denies weight change Past Medical History Past Medical History: GERD/Reflux, Seizure Disorder Additional Past Medical History / Comment(s): "head pressure from hydrocephalus ", last seizure 08/2020, states has had high BP at dr office but no rx History of Any Multi-Drug Resistant Organisms: None Reported Past Surgical History: No Surgical Hx Reported Past Anesthesia/Blood Transfusion Reactions: Family History of Problems w/ Anesthesia Additional Past Anesthesia/Blood Transfusion Reaction / Comment(s): never had anesthesia, family hx PONV Smoking Status: Current every day smoker - Past Family History Mother Family Medical History: Cancer Medications and Allergies Home Medications Medication Instructions Recorded Confirmed Type Famotidine [Pepcid] 40 mg PO HS 01/20/22 01/20/22 History levETIRAcetam [Keppra] 750 mg PO Q12HR 01/20/22 01/20/22 History Allergies Allergy/AdvReac Type Severity Reaction Status Date / Time No Known Allergies Allergy Verified 01/20/22 11:50 Exam Osteopathic Statement: *. No significant issues noted on an osteopathic structu ral exam other than those noted in the History and Physical/Consult. Intake and Output 01/20/22 01/20/22 01/21/22 14:59 22:59 06:59 Other: Weight 106.141 kg 111.1 kg Heart: Regular rate and rhythm Lungs: Clear to auscultation bilaterally Abdomen: Soft, nontender Extremities: Negative Homans sign Assessment and Plan (1) CHRISTOPHER II (cervical intraepithelial neoplasia II) Current Visit: Yes Status: Acute Code(s): N87.1 - MODERATE CERVICAL DYSPLASIA SNOMED Code(s): 252041117 Plan: 1. LEEP
[2022-01-21] MEDS ORDERED: LACTATED RINGERS 1,000 ML IV ONE (06:52)
[2022-01-21] MEDS ORDERED: SCOPOLAMINE 1 MG/72 HR PATCH TRANSDERM ONE (06:58)
[2022-01-21] MEDS ORDERED: PROPOFOL 10 MG/ML 20 ML VIAL IV ONE (07:21)
[2022-01-21] MEDS ORDERED: MIDAZOLAM 2 MG/2 ML VIAL ONE (07:21)
[2022-01-21] MEDS ORDERED: fentaNYL (PF) 50 MCG/ML 2 ML AMP ONE (07:21)
[2022-01-21] MEDS ORDERED: SUCCINYLCHOLINE CHLORIDE VIAL 200 MG/10 ML VIAL IV ONE (07:21)
[2022-01-21] MEDS ORDERED: FERRIC SUBSULFATE (MONSELS) JAR TOPICAL ONE (07:40)
--- NOTE | 2022-01-21 08:07 | P.OP ---
Date of Procedure: 01/21/22 Preoperative Diagnosis: 1. cervical dysplasia Postoperative Diagnosis: 1. Cervical dysplasia Procedure(s) Performed: Loop Electrocautery excision procedure Anesthesia: AMANUELA Surgeon: Renata Diane Estimated Blood Loss (ml): 20 IV fluids (ml): 200 Urine output (ml): 15 Pathology: other (Cervical cone) Condition: stable Disposition: PACU Operative Findings: normal cervix Description of Procedure: Patient is taken the operating room and general anesthesia was obtained without difficulty. She is prepped and draped in normal sterile fashion dorsal lithotomy position, legs placed in the candycane stirrups. Bladder was drained of all urine. A coated bivalve speculum was placed in the vagina and hooked up to suction. 2 cm loop was used to obtain a cervical specimen. The crater left in the cervix was cauterized with the ball cautery. Monsel's was then placed. Patient tolerated procedure well, sponge and instrument counts correct 2. She was taken to recovery in stable condition.
[2022-01-21] MEDS ORDERED: KETOROLAC 15 MG/ML 1 ML VIAL IVP ONE (08:08)
[2022-01-21 08:14] VITALS: TEMP 97.4
[2022-01-21] MEDS: HYDROmorphone 0.5 MG/0.5 ML SYRINGE IVP PRN ×2 (08:33→08:46)
[2022-01-21 09:36] VITALS: BP 125/94; PULSE 89; RESP 18
== END 2022-01-21 10:04 | disposition home or self-care (01) ==
LOC: OR 06:28
PROVIDERS: ATTEND Obstetrics & Gynecology
DX: D06.9 Carcinoma in situ of cervix, unspecified (principal); K21.9 Gastro-esophageal reflux disease without esophagitis; G40.909 Epilepsy, unspecified, not intractable, without status epilepticus; F17.200 Nicotine dependence, unspecified, uncomplicated
CPT/HCPCS: 57522; 81025; 88307; J2250; J0330; J1100; J2405; J3010; J1885; J2704; J1170